=== PATIENT | female | born 1975 | race Caucasian/White ===

== ENCOUNTER 2017-07-21 19:56 | Emergency (ER) | payer BC ==
[~2017-07-21] VITALS: Ht 177.8 cm; Wt 68.0 kg
[2017-07-21 21:16] LABS: UCG SCREEN NEGATIVE
[2017-07-21] MEDS ORDERED: KETOROLAC 60MG/2ML VIAL IM ONE (22:15)
[2017-07-21] MEDS ORDERED: ACETAMINOPHEN WITH CODEINE 300/30MG TABLET PO ONE (22:15)
[2017-07-21 23:35] VITALS: BP 138/74
== END 2017-07-21 23:37 | disposition home or self-care (01) ==
LOC: ER 19:56
DX: S80.01XA Contusion of right knee, initial encounter (principal); X50.0XXA Overexertion from strenuous movement or load, initial encounter; R03.0 Elevated blood-pressure reading, without diagnosis of hypertension; Y93.H9 Activity, other involving exterior property and land maintenance, building and construction; Y92.096 Garden or yard of other non-institutional residence as the place of occurrence of the external cause; Z98.890 Other specified postprocedural states
CPT/HCPCS: 72190; 73552; 73562; 81025; 96372; 99285; J1885